=== PATIENT | male | born 1970 | race Caucasian/White ===

== ENCOUNTER 2020-05-10 07:03 | Emergency (ER) | payer OTHER, BC ==
[2020-05-10 07:27] VITALS: BP 134/83; PULSE 96
[2020-05-10] MEDS ORDERED: Sodium Chloride 0.9% 10 ML Syringe FLUSH PRN (07:30)
[2020-05-10] MEDS ORDERED: Sodium Chloride 0.9% 2.5 ML Syringe FLUSH PRN (07:30)
[2020-05-10] MEDS ORDERED: Ketorolac 15 MG/ML SDV IVPUSH ONE (07:30)
--- NOTE | 2020-05-10 07:42 | EDM.PDOC ---
ED HPI GENERAL MEDICAL PROBLEM - General Chief Complaint: Lower Extremity Injury/Pain Stated Complaint: LEFT LEG PAIN AND SWELLING Time Seen by Provider: 05/10/20 07:13 - History of Present Illness INITIAL COMMENTS - FREE TEXT/NARRATIVE: History of present illness: 50-year-old male presenting with left leg pain. Started in the knee, anterior and posterior and calf and has spread outward into the thigh and lower calf. Start about 3 to 4 days ago and has become more severe over the last few days. No fevers or chills. No warmth to touch over the skin. No known injury and no wound or bite to break the skin. He does report he is concerned about a blood clot because he previously had a stroke 3 years ago which had a ? Clot low in the brain and then had a hemorrhage. At that time was on anticoagulation and antiepileptic medications for a while but not currently. Review of systems: As per history of present illness and below otherwise all systems reviewed and negative. Past medical history: As per history of present illness and as reviewed below otherwise noncontributory. Surgical history: As per history of present illness and as reviewed below otherwise noncontributory. Social history: No reported history of drug or alcohol abuse. Family history: As per history of present illness and as reviewed below otherwise noncontributory. Physical exam: GEN: no acute distress, well appearing HEENT: Atraumatic, normocephalic, mucous membranes moist Neck: supple Lungs: No respiratory distress. Heart: RRR Extremities: Tender to palpation left medial thigh, left posterior knee, left anterior knee and upper calf. Full range of motion about the knee that is minimally painful. No significant erythema or warmth to touch over the knee joint, on exam there is possibly some very minimal erythema, however when compared with R knee, which is asymptomatic, this appears equal coloration/complexion. No ligamentous laxity. Neurovascularly intact. Neuro: Awake, alert, oriented. Neuro Exam nonfocal. Skin: warm, dry, no lesions Diagnostics: [] Therapeutics: [] MDM: Impression: [] Plan: [] Definitive disposition and diagnosis as appropriate pending reevaluation and review of above. Left Knee Pain Score (Numeric/FACES): 10 - Related Data Allergies Allergy/AdvReac Type Severity Reaction Status Date / Time No Known Allergies Allergy Verified 05/10/20 07:23 Home Meds: Home Meds cephALEXin [Keflex] 1,000 mg PO BID #40 cap 05/10/20 [Rx] Past Medical History HEENT History: Reports: None Cardiovascular History: Reports: High Cholesterol Respiratory History: Reports: None Gastrointestinal History: Reports: None Other Gastrointestinal History: occasional heartburn Genitourinary History: Reports: None Musculoskeletal History: Reports: None Neurological History: Reports: CVA Psychiatric History: Reports: Depression Endocrine/Metabolic History: Reports: Diabetes, Type II, Obesity/BMI 30+ Hematologic History: Reports: None Immunologic History: Reports: None Oncologic (Cancer) History: Reports: None Dermatologic History: Reports: None - Infectious Disease History Infectious Disease History: Reports: None - Past Surgical History Head Surgeries/Procedures: Reports: None HEENT Surgical History: Reports: None GI Surgical History: Reports: Colonoscopy Musculoskeletal Surgical History: Reports: None Dermatological Surgical History: Reports: None Social & Family History - Family History Family Medical History: Noncontributory - Tobacco Use Smoking Status *Q: Never Smoker - Recreational Drug Use Recreational Drug Use: No Review of Systems - Review of Systems Review Of Systems: See Below (See HPI) ED EXAM, GENERAL - Physical Exam Exam: See Below (See HPI) Course - Vital Signs Text/Narrative:: Left knee and calf pain. Low risk for DVT, however given patient's history, will check ultrasound as well as x-ray. There is some very mild erythema over the left knee, however this appears consistent with the right knee which is asymptomatic. Will check basic labs. Serum WBC is elevated. Possible very early cellulitis, does not appear to be septic or infected joint. Patient well-appearing, afebrile. Will give dose of Rocephin here and outpatient will cover with Keflex. Last Recorded V/S: Last Vital Signs Temp 98.9 F 05/10/20 07:23 Pulse 96 05/10/20 07:23 Resp 18 05/10/20 07:23 BP 134/83 05/10/20 07:23 Pulse Ox 99 05/10/20 07:23 - Orders/Labs/Meds Orders: Active Orders 24 hr Category Date Time Status CULTURE BLOOD [BC] Stat Lab 05/10/20 08:42 Received CULTURE BLOOD [BC] Stat Lab 05/10/20 08:53 Received Sodium Chloride 0.9% [Saline Flush] Med 05/10/20 07:30 Active 10 ml FLUSH ASDIRECTED PRN Sodium Chloride 0.9% [Saline Flush] Med 05/10/20 07:30 Active 2.5 ml FLUSH ASDIRECTED PRN Blood Culture x2 Reflex Set [OM.PC] Stat Ot 05/10/20 08:13 Ordered Saline Lock Insert [OM.PC] Stat Ot 05/10/20 07:30 Ordered Medication Orders Sodium Chloride (Saline Flush) 10 ml FLUSH ASDIRECTED PRN PRN Reason: Keep Vein Open Last Admin: 05/10/20 07:44 Dose: 10 ml Documented by: [id number] Sodium Chloride (Saline Flush) 2.5 ml FLUSH ASDIRECTED PRN PRN Reason: Keep Vein Open Last Admin: 05/10/20 07:44 Dose: 2.5 ml Documented by: [id number] Labs: Laboratory Tests 05/10/20 05/10/20 Range/Units 07:47 07:47 WBC 18.04 H (4.0-11.0) K/uL RBC 4.93 (4.50-5.90) M/uL Hgb 14.8 (13.0-17.0) g/dL Hct 44.3 (38.0-50.0) % MCV 89.9 (80.0-98.0) fL MCH 30.0 (27.0-32.0) pg MCHC 33.4 (31.0-37.0) g/dL RDW Std Deviation 42.7 (28.0-62.0) fl RDW Coeff of Adan 13 (11.0-15.0) % Plt Count 351 (150-400) K/uL MPV 9.70 (7.40-12.00) fL Neut % (Auto) 77.3 (48.0-80.0) % Lymph % (Auto) 11.6 L (16.0-40.0) % [place] % (Auto) 10.2 (0.0-15.0) % Eos % (Auto) 0.6 (0.0-7.0) % Baso % (Auto) 0.3 (0.0-1.5) % Neut # (Auto) 13.9 H (1.4-5.7) K/uL Lymph # (Auto) 2.1 (0.6-2.4) K/uL [place] # (Auto) 1.8 H (0.0-0.8) K/uL Eos # (Auto) 0.1 (0.0-0.7) K/uL Baso # (Auto) 0.1 (0.0-0.1) K/uL Nucleated RBC % 0.0 /100WBC Nucleated RBCs # 0 K/uL Sodium 135 L (136-148) mmol/L Potassium 4.0 (3.5-5.1) mmol/L Chloride 99 (98-107) mmol/L Carbon Dioxide 23.5 (21.0-32.0) mmol/L BUN 10 (7.0-18.0) mg/dL Creatinine 1.2 (0.8-1.3) mg/dL Est Cr Clr Drug Dosing 76.04 mL/min Estimated GFR (MDRD) > 60.0 ml/min Glucose 217 H (74-106) mg/dL Calcium 8.7 (8.5-10.1) mg/dL Meds: Medications Generic Name Dose Route Start Last Admin Trade Name Freq PRN Reason Stop Dose Admin Sodium Chloride 10 ml 05/10/20 07:30 05/10/20 07:44 Saline Flush FLUSH 10 ml ASDIRECTED PRN Administration Keep Vein Open Sodium Chloride 2.5 ml 05/10/20 07:30 05/10/20 07:44 Saline Flush FLUSH 2.5 ml ASDIRECTED PRN Administration Keep Vein Open Discontinued Medications Generic Name Dose Route Start Last Admin Trade Name Freq PRN Reason Stop Dose Admin Cephalexin 1,000 mg 05/10/20 07:45 05/10/20 08:24 Keflex PO 05/10/20 07:46 Not Given ONETIME ONE Ceftriaxone Sodium 1 gm/ 50 mls @ 100 mls/hr 05/10/20 08:18 05/10/20 09:03 Sodium Chloride IV 05/10/20 08:47 100 mls/hr ONETIME ONE Administration Ketorolac Tromethamine 15 mg 05/10/20 07:30 05/10/20 07:44 Toradol IVPUSH 05/10/20 07:31 15 mg ONETIME ONE Administration - Re-Assessments/Exams Free Text/Narrative Re-Assessment/Exam: 05/10/20 08:38 Feeling well, discussed plan of care. As the patient's white count is elevated, will cover with antibiotics, although no signs of septic joint. X-ray with no fracture and ultrasound shows no DVT. Given dose of Rocephin here and will give Keflex prescription to go home. Patient given strict return instructions and will refer to orthopedics for follow-up, discussed need to follow-up with orthopedics as soon as possible. Will provide both local and orthopedics in [place]. Departure - Departure Time of Disposition: 08:39 Disposition: Home, Self-Care 01 Clinical Impression: Knee pain, left - Discharge Information Prescriptions: cephALEXin [Keflex] 1,000 mg PO BID #40 cap Instructions: Acute Knee Pain, Adult, How to Use Cold Therapy, [id number], Cellulitis, Adult, [id number], Musculoskeletal Pain Referrals: PCP,Lizeth [Primary Care Provider] - Aaron Teague MD [Ordering Only Provider] - 1 Day Forms: ED Department Discharge Additional Instructions: Take the Keflex until all tabs are gone. You may apply ice to the painful knee. Please follow-up with the orthopedic clinic listed below or the orthopedic surgeon listed in [place], whoever can see you sooner, preferably within 1 to 2 days for reassessment. To the ER immediately if you notice any increased pain or swelling in the knee, any fevers, or any increase in the very mild redness of the skin over your knee. Also please follow-up with 1 of the primary care clinics listed below for [facility] care. The following information is given to patients seen in the emergency department who are being discharged to home. This information is to outline your options for follow-up care. We provide all patients seen in our emergency department with a follow-up referral. The need for follow-up, as well as the timing and circumstances, are variable depending upon the specifics of your emergency department visit. If you don't have a primary care physician on staff, we will provide you with a referral. We always advise you to contact your personal physician following an emergency department visit to inform them of the circumstance of the visit and for follow-up with them and/or the need for any referrals to a consulting specialist. The emergency department will also refer you to a specialist when appropriate. This referral assures that you have the opportunity for follow-up care with a specialist. All of these measure are taken in an effort to provide you with optimal care, which includes your follow-up. Under all circumstances we always encourage you to contact your private physician who remains a resource for coordinating your care. When calling for follow-up care, please make the office aware that this follow-up is from your recent emergency room visit. If for any reason you are refused follow-up, please contact the [facility] Emergency Department at and asked to speak to the emergency department charge nurse. [facility] - Orthopedic Clinic Professional Building [address] [facility], [address] [place] [address] [facility] - Primary Care [address], [place] [address] [address] Sepsis Event Note (ED) - Evaluation Sepsis Screening Result: No Definite Risk - Focused Exam Vital Signs: Vital Signs Temp Pulse Resp BP Pulse Ox 05/10/20 07:23 98.9 F 96 18 134/83 99 - My Orders Last 24 Hours: My Active Orders 05/10/20 07:30 Sodium Chloride 0.9% [Saline Flush] 10 ml FLUSH ASDIRECTED PRN Sodium Chloride 0.9% [Saline Flush] 2.5 ml FLUSH ASDIRECTED PRN Saline Lock Insert [OM.PC] Stat 05/10/20 08:13 Blood Culture x2 Reflex Set [OM.PC] Stat 05/10/20 08:42 CULTURE BLOOD [BC] Stat 05/10/20 08:53 CULTURE BLOOD [BC] Stat - Assessment/Plan Last 24 Hours: My Active Orders 05/10/20 07:30 Sodium Chloride 0.9% [Saline Flush] 10 ml FLUSH ASDIRECTED PRN Sodium Chloride 0.9% [Saline Flush] 2.5 ml FLUSH ASDIRECTED PRN Saline Lock Insert [OM.PC] Stat 05/10/20 08:13 Blood Culture x2 Reflex Set [OM.PC] Stat 05/10/20 08:42 CULTURE BLOOD [BC] Stat 05/10/20 08:53 CULTURE BLOOD [BC] Stat
[2020-05-10] MEDS ORDERED: Cephalexin 500 MG Cap PO ONE (07:45)
[2020-05-10 08:11] LABS: BLOOD UREA NITROGEN,BUN 10 mg/dL (7.0-18.0); CARBON DIOXIDE,CO2 23.5 mmol/L (21.0-32.0); CHLORIDE,CL 99 mmol/L (98-107); GLUCOSE RANDOM 217 mg/dL (74-106); SODIUM,NA 135 mmol/L (136-148)
[2020-05-10] MEDS ORDERED: cefTRIAXone 1 GM in Sodium Chloride 0.9% 50 ML IV ONE (08:18)
--- NOTE | 2020-05-10 08:26 | US ---
INDICATION: Left flank pain COMPARISON: None available. FINDINGS: Ultrasound of the venous drainage of the left lower extremity shows no evidence of deep venous thrombosis. There is normal antegrade flow from the posterior tibial and popliteal veins superiorly through the common femoral vein. There is normal augmentation and compressibility of these veins. The right common femoral vein is widely patent. IMPRESSION: No evidence of deep venous thrombosis on ultrasound examination of the left lower extremity. Dictated by Eber Palacios MD @ May 10 2020 8:24AM Signed by Dr. Eber Palacios @ May 10 2020 8:25AM
--- NOTE | 2020-05-10 08:34 | CR ---
Indication: Left lower extremity pain Technique: A total of three views of the new were acquired. Comparison: None Findings: Bones: Alignment is normal. No fractures or bone lesions. Joint spaces: The joint spaces show no arthritic finding. There may be a small joint effusion. Soft tissues: Unremarkable. Impression: The osseous structures appear normal. Probable small joint effusion. No significant arthritic findings apparent Dictated by Eber Palacios MD @ May 10 2020 8:31AM Signed by Dr. Eber Palacios @ May 10 2020 8:33AM
== END 2020-05-10 09:33 | disposition home or self-care (01) ==
LOC: MW.ED 07:03
DX: M25.562 Pain in left knee (principal); M79.652 Pain in left thigh; E11.9 Type 2 diabetes mellitus without complications; E66.9 Obesity, unspecified; Z68.28 Body mass index [BMI] 28.0-28.9, adult
CPT/HCPCS: 36415; 73562; 80048; 85025; 87040; 93971; 96365; 96375; 99284; J0696; J1885; J7050; 99283

== ENCOUNTER 2020-05-13 18:30 | Emergency (ER) | payer OTHER, BC ==
--- NOTE | 2020-05-13 19:13 | EDM.PDOC ---
ED HPI GENERAL MEDICAL PROBLEM - General Chief Complaint: Lower Extremity Injury/Pain Stated Complaint: INFECTION RIGHT FOOT Time Seen by Provider: 05/13/20 18:53 - History of Present Illness INITIAL COMMENTS - FREE TEXT/NARRATIVE: History of present illness: [] Patient developed pain and redness in his right foot and ankle. He was seen 3 days ago for swelling and pain in his left knee. X-rays and sonogram were negative at that time. He was told not to have a DVT. He is to follow-up with orthopedics when he surprisingly developed this pain and redness in the right foot. Have any systemic signs of illness. Review of systems: As per history of present illness and below otherwise all systems reviewed and negative. Past medical history: As per history of present illness and as reviewed below otherwise noncontribut ory. Surgical history: As per history of present illness and as reviewed below otherwise noncontributory. Social history: No reported history of drug or alcohol abuse. Family history: As per history of present illness and as reviewed below otherwise noncontributory. Physical exam: Constitutional - well developed, well-nourished and in no acute distress HEENT - normocephalic, no evidence of trauma - external nose and mouth normal - no mass in neck and no JVD - mucosae moist EYES - full EOM, PERRL, no icterus - no evidence of inflammation, injection, or drainage Respiratory - no respiratory distress, equal bilateral expansion, lungs clear to auscultation and no abnormal lung sounds Cardiovascular - Regular Rhythm with S1 and S2 appreciated and no murmur, gallop or rub. Peripheral pulses symmetrically normal in all four extremities GI - abdomen soft without distension or organomegaly - normal bowel sounds - no guard or rebound Musculoskeletal the patient has pain with movement of the right ankle to the point where he almost will not let me move it at all. And her of his joints have fluid range of motion. No gross deformity of long bones or joints - no tenderness, swelling or edema Neurologic - Alert and oriented times four - CN II-XII grossly intact - motor sensory and coordination symmetrically normal Psychiatric - appropriate mood and affect with normal thought content Hematologic - No petechiae or purpura - mucosa appropriate color and sclera not pale - normal nail bed color and refill Integument -the right lower leg and ankle are erythematous and slightly . Otherwise no rash or evidence of trauma - normal turgor Diagnostics: [] Therapeutics: [] Impression: [] Plan: [] Definitive disposition and diagnosis as appropriate pending reevaluation and review of above. Right foot Pain Score (Numeric/FACES): 5 - Related Data Allergies Allergy/AdvReac Type Severity Reaction Status Date / Time No Known Allergies Allergy Verified 05/13/20 18:52 Home Meds: Home Meds cephALEXin [Keflex] 1,000 mg PO BID #40 cap 05/10/20 [Rx] Sulfamethoxazole/Trimethoprim [Bactrim Ds Tablet] 1 each PO BID 14 Days #28 tablet 05/13/20 [Rx] Past Medical History HEENT History: Reports: None Cardiovascular History: Reports: High Cholesterol Respiratory History: Reports: None Gastrointestinal History: Reports: None Other Gastrointestinal History: occasional heartburn Genitourinary History: Reports: None Musculoskeletal History: Reports: None Neurological History: Reports: CVA Psychiatric History: Reports: Depression Endocrine/Metabolic History: Reports: Diabetes, Type II, Obesity/BMI 30+ Hematologic History: Reports: None Immunologic History: Reports: None Oncologic (Cancer) History: Reports: None Dermatologic History: Reports: None - Infectious Disease History Infectious Disease History: Reports: None - Past Surgical History Head Surgeries/Procedures: Reports: None HEENT Surgical History: Reports: None GI Surgical History: Reports: Colonoscopy Musculoskeletal Surgical History: Reports: None Dermatological Surgical History: Reports: None Social & Family History - Family History Family Medical History: Noncontributory - Tobacco Use Smoking Status *Q: Never Smoker - Recreational Drug Use Recreational Drug Use: No Review of Systems - Review of Systems Review Of Systems: Comprehensive ROS is negative, except as noted in HPI. ED EXAM, GENERAL - Physical Exam Exam: See Below Free Text/Narrative:: Exam as in the HPI ED TRAUMA EXTREMITY PROCEDURES - Additional/Other Procedure(s) Other (Free Text) Procedure(s): Arthrocentesis Explaining risk and benefit the patient accepted and I prepared the right ankle with Betadine. Using sterile technique I administered 5 mL of subcutaneous lidocaine 1% preservative-free without epinephrine. I inserted the needle anterior to the malleolus and obtain less than 1 cc of serosanguineous fluid. Was sent to the laboratory and insufficient to do any tests other than culture. A culture was sent. Tolerated the procedure well Course - Vital Signs Last Recorded V/S: Last Vital Signs Temp 98.3 F 05/13/20 18:53 Pulse 81 05/13/20 20:38 Resp 16 05/13/20 20:38 BP 108/66 05/13/20 20:38 Pulse Ox 96 05/13/20 20:38 - Orders/Labs/Meds Orders: Active Orders 24 hr Category Date Time Status CULTURE BODY FLUID + SMEAR [RM] Stat Lab 05/13/20 19:48 Received Labs: Laboratory Tests 05/13/20 05/13/20 05/13/20 Range/Units 20:01 20:01 20:01 WBC 14.13 H (4.0-11.0) K/uL RBC 4.83 (4.50-5.90) M/uL Hgb 14.3 (13.0-17.0) g/dL Hct 44.0 (38.0-50.0) % MCV 91.1 (80.0-98.0) fL MCH 29.6 (27.0-32.0) pg MCHC 32.5 (31.0-37.0) g/dL RDW Std Deviation 43.5 (28.0-62.0) fl RDW Coeff of Adan 13 (11.0-15.0) % Plt Count 435 H (150-400) K/uL MPV 9.60 (7.40-12.00) fL Neut % (Auto) 75.4 (48.0-80.0) % Lymph % (Auto) 17.3 (16.0-40.0) % [place] % (Auto) 5.7 (0.0-15.0) % Eos % (Auto) 1.1 (0.0-7.0) % Baso % (Auto) 0.5 (0.0-1.5) % Neut # (Auto) 10.7 H (1.4-5.7) K/uL Lymph # (Auto) 2.5 H (0.6-2.4) K/uL [place] # (Auto) 0.8 (0.0-0.8) K/uL Eos # (Auto) 0.2 (0.0-0.7) K/uL Baso # (Auto) 0.1 (0.0-0.1) K/uL Nucleated RBC % 0.0 /100WBC Nucleated RBCs # 0 K/uL ESR 67 H (0-19) mm/hr Sodium 134 L (136-148) mmol/L Potassium 4.4 (3.5-5.1) mmol/L Chloride 97 L (98-107) mmol/L Carbon Dioxide 27.2 (21.0-32.0) mmol/L BUN 19 H (7.0-18.0) mg/dL Creatinine 1.4 H (0.8-1.3) mg/dL Est Cr Clr Drug Dosing 65.18 mL/min Estimated GFR (MDRD) 53.6 ml/min Glucose 316 H (74-106) mg/dL Uric Acid 4.7 (2.6-7.2) mg/dL Calcium 8.9 (8.5-10.1) mg/dL C-Reactive Protein 11.70 H (0.00-0.90) mg/dL Meds: Medications Discontinued Medications Generic Name Dose Route Start Last Admin Trade Name Freq PRN Reason Stop Dose Admin Lidocaine HCl 5 ml 05/13/20 19:30 05/13/20 19:38 Xylocaine-Mpf 1% INJECT 05/13/20 19:31 5 ml ONETIME ONE Administration Trimethoprim/Sulfamethoxazole 1 tab 05/13/20 20:20 05/13/20 20:35 Septra Ds PO 05/13/20 20:21 1 tab ONETIME ONE Administration Departure - Departure Time of Disposition: 21:08 Disposition: Home, Self-Care 01 Condition: Good Clinical Impression: Ankle pain, right, Cellulitis - Discharge Information Prescriptions: Sulfamethoxazole/Trimethoprim [Bactrim Ds Tablet] 1 each PO BID 14 Days #28 tablet Instructions: Cellulitis, Adult Referrals: PCP,None [Primary Care Provider] - Forms: ED Department Discharge Additional Instructions: If you develop fever or chills, or if you get sick, or if you feel weak or lightheaded, or if you are vomiting, or if there are red streaks coming up your leg you need to be seen and start intravenous antibiotics and be seen by an orthopedist. Please the orthopedist that we aspirated the joint for culture before we started an additional antibiotic. Your white blood cell count is improved. If you get sick like with lightheadedness fever chills or any systemic signs of infection you should return and consider intravenous antibiotics and Ortho consult. Take both antibiotics until you see the orthopedist. Restart your metformin and drink plenty of fluids at least until this problem with your joints is over. You need to follow-up with your primary doctor or the clinic. They need to recheck your kidney functions your liver functions and your sugar. Inflammatories which include naproxen or ibuprofen rather than plain Tylenol. These will be better for the inflammation. New the original antibiotic since her knee got better and have the new antibiotic in case there is infection in the soft tissue around the joint of the right ankle. The following information is given to patients seen in the emergency department who are being discharged to home. This information is to outline your options for follow-up care. We provide all patients seen in our emergency department with a follow-up referral. The need for follow-up, as well as the timing and circumstances, are variable depending upon the specifics of your emergency department visit. If you don't have a primary care physician on staff, we will provide you with a referral. We always advise you to contact your personal physician following an emergency department visit to inform them of the circumstance of the visit and for follow-up with them and/or the need for any referrals to a consulting specialist. The emergency department will also refer you to a specialist when appropriate. This referral assures that you have the opportunity for follow-up care with a specialist. All of these measure are taken in an effort to provide you with optimal care, which includes your follow-up. Under all circumstances we always encourage you to contact your private physician who remains a resource for coordinating your care. When calling for follow-up care, please make the office aware that this follow-up is from your recent emergency room visit. If for any reason you are refused follow-up, please contact the [facility] Emergency Department at and asked to speak to the emergency department charge nurse. [facility] - Primary Care [address] [place] [id number] [facility] [address] [place] [address] Sepsis Event Note (ED) - Evaluation Sepsis Screening Result: No Definite Risk - Focused Exam Vital Signs: Vital Signs Temp Pulse Resp BP Pulse Ox 05/13/20 20:38 81 16 108/66 96 05/13/20 18:53 98.3 F 95 15 144/72 H 95 - My Orders Last 24 Hours: My Active Orders 05/13/20 19:48 CULTURE BODY FLUID + SMEAR [RM] Stat - Assessment/Plan Last 24 Hours: My Active Orders 05/13/20 19:48 CULTURE BODY FLUID + SMEAR [RM] Stat
[2020-05-13] MEDS ORDERED: Sulfamethoxazole/Trimethoprim 800-160 MG Tab PO ONE (20:20)
[2020-05-13 20:38] VITALS: BP 108/66; PULSE 81
[2020-05-13 20:53] LABS: CARBON DIOXIDE,CO2 27.2 mmol/L (21.0-32.0); POTASSIUM,K 4.4 mmol/L (3.5-5.1)
== END 2020-05-13 21:20 | disposition home or self-care (01) ==
LOC: MW.ED 18:30
DX: L03.115 Cellulitis of right lower limb (principal); E11.9 Type 2 diabetes mellitus without complications; E66.9 Obesity, unspecified; Z86.73 Personal history of transient ischemic attack (TIA), and cerebral infarction without residual deficits; Z68.28 Body mass index [BMI] 28.0-28.9, adult
CPT/HCPCS: 20605; 36415; 80048; 84550; 85025; 85652; 86140; 87070; 87205; 99283; A9270; J2001; 99282